=== PATIENT | male | born 1995 | race Caucasian/White ===

== ENCOUNTER 2019-08-08 21:34 | Emergency (ER) | payer SELFPAY ==
[~2019-08-08] VITALS: Ht 175.3 cm; Wt 67.0 kg
--- NOTE | 2019-08-08 21:41 | NUR ---
PT RESPONSIVE TO PAIN. PLACED ON ALL MONITORS, VSS. BLANKET PROVIDED. WILL CONT TO MONITOR.
--- NOTE | 2019-08-08 23:39 | NUR ---
PT SITTING UP ON GURNEY, ROCKING BACK AND FORTH. PT MANAGED TO TAKE SHOES OFF. VSS AND WILL CONT TO MONITOR.
[2019-08-09 01:12] VITALS: BP 113/69
--- NOTE | 2019-08-09 01:13 | NUR ---
BREAK RN: PT. RESTING ON GURNEY WITH NO DISTRESS NOTED. VS UPDATED. ALL MONITORS IN PLACE. ALL SAFETY MEASURES OBSERVED.
== END 2019-08-09 02:16 | disposition home or self-care (01) ==
LOC: ED 23:47
DX: F15.129 Other stimulant abuse with intoxication, unspecified (principal); Y90.0 Blood alcohol level of less than 20 mg/100 ml; F17.210 Nicotine dependence, cigarettes, uncomplicated
CPT/HCPCS: 93005; 99283